=== PATIENT | female | born 1990 | race Caucasian/White ===

== ENCOUNTER 2019-07-12 09:43 | Emergency (ER) | payer OTHER ==
[~2019-07-12] VITALS: Ht 160 cm; Wt 97.5 kg
[2019-07-12] MEDS ORDERED: PRENATAL + DHA1 EAC1 (09:57)
== END 2019-07-12 12:24 | disposition home or self-care (01) ==
LOC: ER 09:43
DX: O20.0 Threatened abortion (principal)

== ENCOUNTER → 2019-07-13 06:00 | Outpatient (CLI) | payer OTHER ==
[~2019-07-13 06:00] MED LIST: PRENATAL + DHA1 EAC1
== END | disposition home or self-care (01) ==
LOC: LAB 06:00 → CIR.AMB 07-15 07:00 → EDSTATUS 07-15 07:00 → CIR.AMB 07-15 12:32
DX: O02.1 Missed abortion (principal)

== ENCOUNTER 2020-08-20 04:54 | Inpatient (IN) | payer OTHER ==
[~2020-08-20] VITALS: Ht 160 cm; Wt 97.5 kg
== END 2020-08-22 10:23 | disposition home or self-care (01) | DRG 833 ==
LOC: LDR 04:54
PROVIDERS: ADMIT Obstetrics & Gynecology; ATTEND Obstetrics & Gynecology
PROC: BY4CZZZ Ultrasonography of Second Trimester, Single Fetus (ICD-10-PCS; principal; 2020-08-20)
DX: O26.892 Other specified pregnancy related conditions, second trimester (principal); R10.2 Pelvic and perineal pain; Z3A.23 23 weeks gestation of pregnancy

== ENCOUNTER 2020-10-13 23:28 | Emergency (ER) | payer OTHER ==
[~2020-10-13] VITALS: Ht 160 cm; Wt 97.5 kg
[2020-10-14] MEDS ORDERED: AMOX-CLAV 875-1 EACH PO (04:47)
[2020-10-14] MEDS ORDERED: CODE1TAB37 PO (04:47)
== END 2020-10-14 04:58 | disposition home or self-care (01) ==
LOC: ER 23:28
DX: K04.7 Periapical abscess without sinus (principal); M79.661 Pain in right lower leg

== ENCOUNTER 2020-11-15 11:07 | Outpatient (CLI) | payer OTHER ==
[~2020-11-15 11:07] MED LIST changes: +AMOX-CLAV 875-1 EACH PO; +CODE1TAB37 PO
== END 2020-11-15 11:53 | disposition home or self-care (01) ==
LOC: NST 11:07
PROVIDERS: ATTEND Obstetrics & Gynecology
DX: Z34.83 Encounter for supervision of other normal pregnancy, third trimester (principal)

== ENCOUNTER 2020-11-22 09:31 | Outpatient (CLI) | payer OTHER ==
[2020-11-30] MEDS ORDERED: HUMULIN N100 UNIT/2 ×2 (11:01→11:02)
[2020-11-30] MEDS ORDERED: HUMALOG100 UNIT/2 (11:02)
== END 2020-11-22 10:08 | disposition home or self-care (01) ==
LOC: NST 09:31
PROVIDERS: ATTEND Obstetrics & Gynecology Maternal & Fetal Medicine
DX: Z34.83 Encounter for supervision of other normal pregnancy, third trimester (principal)

== ENCOUNTER 2020-11-30 13:13 | Outpatient (CLI) | payer OTHER ==
[~2020-11-30 13:13] MED LIST changes: +HUMALOG100 UNIT/2; +HUMULIN N100 UNIT/2
== END 2020-11-30 13:44 | disposition home or self-care (01) ==
LOC: NST 13:13
PROVIDERS: ATTEND Obstetrics & Gynecology
DX: Z34.83 Encounter for supervision of other normal pregnancy, third trimester (principal)